=== PATIENT | female | born 1990 | race Caucasian/White ===

== ENCOUNTER 2020-10-16 16:47 | Outpatient (CLI) | payer OTHER ==
[2020-10-16] MEDS ORDERED: LIDOCAINE 1% 2 ML VIAL MC ONE (17:55)
[2020-10-16] MEDS ORDERED: cefTRIAXone 250 MG VIAL IM ONE (17:55)
--- NOTE | 2020-10-16 18:33 | PROVIDER PROGRESS NOTE ---
- HPI Chief Complaint: Other (pelvic pressure) - Procedures OB Procedure Performed: NST Findings: Patient is a 29 yo at 31+6 wga here for assessment of possible labor, dysuria, and pelvic pressure. Patient was seen in clinic on 10/13/2020 and underwent a sterile spec exam and SVE that was reassuring. fibronectin was positive. NoLOF or VB. Has been having pelvic pain and pressure. 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 UCX was negative. Has severe pelvic organ prolapse and underwent pelvic floor surgery involving and anterior and posterior repair as well as some sort of laparoscopic procedure but she is unsure what procedure was done. She is not sure if she had a suspensory procedure. She has been fit with a pessary in the past. No fever/chills/nausea/vomiting Has had one , uncomplicated. Planning an elective to avoid further damage to the prolapse repair. Neg GCCT and vaginitis panel on 10/13/2020 PMH: pelvic organ prolapse PSH: Anterior-posterior repair with suspension procedure 2019. Tonsillectomy. Appendectomy. Knee surgery. ROS: As per HPI, otherwise remaining systems are negative. GEN: NAD HEAD: NCAT EYES: No scleral icterus or conjunctival injection CV: RR RESP: normal effort ABD: gravid, S&NT/ND PSYCH: appropriate affect NEURO: alert and oriented, normal gait and coordination EXT: WWP TVCL prelim read ~3.5 cm EFM 145 mod doe 10x10 and 15x15 accels no decels TOCO: quiet A/P labor assessment: Reassuring TVCL Given ceftriaxone 250 mg IM x1 given empirically for dysuria UA pending Cat I/AGA NST DX: False labor IUP at 31+6 wga Warning signs reviewed FU on Oct 27 in clinic DC to home
[2020-10-16 19:10] VITALS: BP 116/72
[2020-10-16 19:28] LABS: BILIRUBIN,URINE NEGATIVE (NEGATIVE); GLUCOSE, URINE (UA) NEGATIVE (NEGATIVE); KETONES,URINE (UA) >=80 mg/dL (NEGATIVE); LEUKOCYTE ESTERASE, URINE TRACE (NEGATIVE); NITRITE,URINE NEGATIVE (NEGATIVE); OCCULT BLOOD,URINE NEGATIVE (NEGATIVE); PROTEIN,URINE NEGATIVE (NEGATIVE); UROBILINOGEN,URINE 0.2 (NORMAL) E.U./dL (NORMAL)
[2020-10-16 19:30] LABS: CLARITY,URINE HAZY (CLEAR)
[2020-10-16 19:42] LABS: BACTERIA,URINE Few /HPF (None Seen); RBC,URINE 0-5 /HPF (0-5); SQUAMOUS EPITHELIAL CELL,UR FEW Squamous (<= Few)
--- NOTE | 2020-10-16 19:47 | Ultrasound Report ---
PROCEDURE: OB Limited INDICATIONS: labor OUTSIDE/PRIOR DATING DATA: Last menstrual period (LMP): Unknown. LMP-based estimated date of delivery (MARKEL): Not applicable. Estimated date of delivery (MARKEL) based off clinical datin12/12/2020. TECHNIQUE: Real-time scanning was performed of the fetus, with image documentation. COMPARISON: None. FINDINGS: A single living intrauterine gestation is present. Presentation: Vertex Placenta: Placental position is posterior, without previa. Amniotic fluid index: 13.2 cm, 37th percentile for gestational age. Largest vertical pocket measured 5.2 cm heart rate: 144 beats per minutes. Maternal cervical canal: 3.5 cm long; normal length is 2.5 cm or more. No evidence for funneling of t he internal cervical os. Estimated gestational age: 31 weeks and 6 days. IMPRESSION: 1. Single living intrauterine gestation with estimated gestational age of approximately 31 weeks and 6 days based off clinical dating. 2. Maternal cervical length measures 3.5 cm. Cervix appears long and closed without evidence for funn eling. 3. Four-quadrant MARILYN measuring 13.2 cm. Largest vertical pocket of 5.2 cm. Reviewed by: Serafin Chisholm MD on 10/16/2020 7:46 PM PST Approved by: Serafin Chisholm MD on 10/16/2020 7:46 PM PST Station ID: [id number]
--- NOTE | 2020-10-16 19:48 | Ultrasound Report ---
PROCEDURE: OB transvaginal INDICATIONS: labor OUTSIDE/PRIOR DATING DATA: Last menstrual period (LMP): Unknown. LMP-based estimated date of delivery (MARKEL): Not applicable. Estimated date of delivery (MARKEL) based off clinical datin12/12/2020. TECHNIQUE: Real-time scanning was performed of the fetus, with image documentation. Transvaginal imaging was pe rformed. COMPARISON: None. FINDINGS: A single living intrauterine gestation is present. Presentation: Vertex Placenta: Placental position is posterior, without previa. Amniotic fluid index: 13.2 cm, 37th percentile for gestational age. Largest vertical pocket measured 5.2 cm heart rate: 144 beats per minutes. Maternal cervical canal: 3.5 cm long; normal length is 2.5 cm or more. No evidence for funneling of t he internal cervical os. Estimated gestational age: 31 weeks and 6 days. IMPRESSION: 1. Single living intrauterine gestation with estimated gestational age of approximately 31 weeks and 6 days based off clinical dating. 2. Maternal cervical length measures 3.5 cm. Cervix appears long and closed without evidence for funn eling. 3. Four-quadrant MARILYN measuring 13.2 cm. Largest vertical pocket of 5.2 cm. Reviewed by: Serafin Chisholm MD on 10/16/2020 7:46 PM PST Approved by: Serafin Chisholm MD on 10/16/2020 7:46 PM PST Station ID: [id number]
== END 2020-10-16 19:26 | disposition home or self-care (01) ==
LOC: WFO 16:47 → FBP 16:53 → WFO 19:26
PROVIDERS: ATTEND Obstetrics & Gynecology
DX: O99.891 Other specified diseases and conditions complicating pregnancy (principal); R30.0 Dysuria
CPT/HCPCS: 81001; 87086; 96372; 99213

== ENCOUNTER 2020-10-26 13:02 | Outpatient (CLI) | payer OTHER ==
[2020-10-26 14:07] LABS: BILIRUBIN,URINE NEGATIVE (NEGATIVE); GLUCOSE, URINE (UA) NEGATIVE (NEGATIVE); KETONES,URINE (UA) NEGATIVE (NEGATIVE); LEUKOCYTE ESTERASE, URINE NEGATIVE (NEGATIVE); NITRITE,URINE NEGATIVE (NEGATIVE); OCCULT BLOOD,URINE NEGATIVE (NEGATIVE); PROTEIN,URINE NEGATIVE (NEGATIVE); UROBILINOGEN,URINE 0.2 (NORMAL) E.U./dL (NORMAL)
[2020-10-26 14:13] LABS: BACTERIA,URINE None Seen /HPF (None Seen); CLARITY,URINE CLEAR (CLEAR); RBC,URINE None Seen /HPF (0-5); SQUAMOUS EPITHELIAL CELL,UR NONE SEEN (<= Few)
[2020-10-26 14:17] VITALS: BP 123/81
== END 2020-10-26 16:45 | disposition home or self-care (01) ==
LOC: WFO 13:02 → FBP 13:06 → WFO 16:45
PROVIDERS: ATTEND Obstetrics & Gynecology
DX: O71.6 Obstetric damage to pelvic joints and ligaments (principal); Z3A.00 Weeks of gestation of pregnancy not specified
CPT/HCPCS: 81001; 82731; 87086

== ENCOUNTER 2020-11-18 08:00 | Outpatient (CLI) | payer OTHER | END 2020-11-18 23:59 | disposition home or self-care (01) | LOC: LAB.R 08:00 | PROVIDERS: ATTEND Obstetrics & Gynecology | DX: O09.90 Supervision of high risk pregnancy, unspecified, unspecified trimester (principal) | CPT/HCPCS: 87797 ==